=== PATIENT | female | born 1985 | race Caucasian/White ===

== ENCOUNTER 2023-10-15 01:38 | Day surgery (SDC) | payer BC, SELFPAY ==
[2023-10-06 14:25] VITALS: BMI 35.6
--- NOTE | 2023-10-06 14:53 | PC.NURSE ---
Report to the Outpatient Waiting Room, entrance under the green pavilion located off [facility], at time _10:00AM___ on date _FRIDAY _10/15/23 . Planned Procedure Time: _12:00AM . Time changes happen often and if your time is changed the preop area will call you the afternoon before. - You and your visitor will be asked to self-screen and do not enter if you have any COVID symptoms. - A mask is optional within the hospital at this time. Patients may have clear liquids (water, carbonated beverages, clear teas, apple juice) until 3 hours prior to surgery(09:00 AM) with a maximum of 20 ounces. - No food from midnight until time of surgery . Take the following medications with a SIP of water the morning of surgery: ___SERTRALINE DO NOT STOP ANY OF YOUR OTHER PRESCRIPTION MEDICATIONS PRIOR TO SURGERY ?EXCEPT THE FOLLOWING Medications to discontinue per physician NONE Date to take last dose NONE Please no make-up, nail palauan, hairspray, perfume, deodorant, or body powder the day of surgery. No jewelry (including any body piercings) or valuables the day of surgery, leave them at home. Please take a shower or bath the night before, or the morning of, surgery with an antibacterial soap. Wear comfortable, loose fitting clothing. - Jewelry must be removed prior to entering the operating room. Rings and piercings that are not removed may be cut off. - The hospital will not accept responsibility for valuables. - Please leave all valuables, including medications, at home the day of surgery. If you are going home after surgery, a licensed taxi cab driver must drive you home. - NO public transportation without another adult if you receive anesthesia. - We recommend that an adult stay with you for 24 hours following discharge. - We also recommend that you do not drive, make important decision, drink alcoholic beverages, or take any drugs that were not prescribed by your health care provider for at least 24 hours after your discharge time. Follow any additional instructions given to you from your surgeon. If you or anyone in your household have experienced Covid symptoms in the past week, please notify your surgeon or the nurse liaison at the phone number below for possible testing. Telephone instructions given to __RAINA and asked if any additional questions and then verbalized understanding. Patient advised to call surgeon office or pre surgery nurse liaison [phone] if any additional questions.
[2023-10-15] VITALS (8 sets, daily range): BP systolic 115–128; BP diastolic 62–87; PULSE 72–115; RESP 12–16; TEMP 34.8–36.2; O2SAT 96–100
[2023-10-15] MEDS: ACETAMINOPHEN 500 MG TABLET 1000 MG PO (10:46)
[2023-10-15] MEDS: KETOROLAC 15 MG/ML VIAL (*BKC) IV PUSH (10:47)
--- NOTE | 2023-10-15 11:16 | WPDANESEPPF ---
Anes - Initial Pre Proc Eval Procedure: Operation Date: 10/15/23 12:00 Proposed Procedures p Laparoscopic Bilateral Tubal Ligation with Rings - Da Dunbar MD s Hysteroscopy Dilation and Curettage with Preeti Endometrial Ablation - Da Dunbar MD Date/Time: 10/15/23 11:16 Surgeon: Da Dunbar MD Pre Op Diagnosis: Desire Steriliz, Irg Bleeding Patient Data Age: 38 Gender: F Height: 1.65 m Weight: 94.7 kg Last Vital Signs Temp 34.8 C L 10/15/23 10:48 Pulse 89 10/15/23 10:48 Resp 16 10/15/23 10:48 BP 125/86 10/15/23 10:48 Pulse Ox 98 10/15/23 10:48 O2 Del Method Room Air 10/15/23 10:48 Allergies Allergy/AdvReac Type Severity Reaction Status Date / Time No Known Allergies Allergy Verified 10/15/23 10:45 Home Medications Medication Instructions Recorded Confirmed Type sertraline 100 mg tablet 100 mg PO DAILY 10/06/23 10/15/23 History trazodone 50 mg tablet 50 mg PO DAILY 10/06/23 10/15/23 History Patient hx anesthesia problems: none Family hx anesthesia problems: none Results Review: All pre-operative results and documents have been reviewed as part of the pre-operative evaluation. [facility] Social History Social History Smoking packs per day: 0.5 Smoking cigarettes per day: 10.0 Years smoked: 20 Smoking pack-years: 10.00 Smoking status: Light tobacco smoker Tobacco type: e-cigarettes/vaping Additional smoking assessment comments: SWITCHED TO VAPING 2020 Alcohol intake: never Substance use: never Substance use type: does not use Living arrangements: with family Spiritual care concerns: No Anes - Eval Final PreProcedure Day of Procedure 10/15/23 11:16 Patient weight: obese Heart: regular rate and rhythm Lungs: decreased breath sounds Airway: Mallampati scale class II Neurological: alert and oriented Last oral intake: >/= 8 hours ASA classification: II Emergent: no Anesthetic plan: proceed Anesthesia type and monitoring: general ETT and standard monitoring Results Review: All pre-operative results and documents have been reviewed as part of the pre-operative evaluation. Informed Consent: The patient's anesthetic plan and its attendant risks and benefits were discussed with the patient/family/POA. Questions were solicited and answers provided to the satisfaction of the patient/family/POA.
[2023-10-15] MEDS: LACTATED RINGERS 1,000 ML 30 ML IV CONT (11:30)
--- NOTE | 2023-10-15 11:40 | PM.IMHP ---
H&P: HPI History of Present Illness Date/Time: 10/15/23 11:40 Chief Complaint: Bleeding and pain Narrative: 46 y/o with painful menses and for a week afterward. Ultrasound shows heterogeneous myometrial texture, but is otherwise unremarkable. She does not desire future childbearing. Review of Systems Review of Systems: All systems reviewed & are unremarkable except as noted in HPI and below PMFSH Past Medical History Medical History History of depression History of insomnia Surgical History Surgical History History of D&C Social History Social History Smoking packs per day: 0.5 Smoking cigarettes per day: 10.0 Years smoked: 20 Smoking pack-years: 10.00 Smoking status: Light tobacco smoker Tobacco type: e-cigarettes/vaping Additional smoking assessment comments: SWITCHED TO VAPING 2020 Alcohol intake: never Substance use: never Substance use type: does not use Living arrangements: with family Spiritual care concerns: No Meds Home Medications and Allergies Home Medications Medication Instructions Recorded Confirmed Type sertraline 100 mg tablet 100 mg PO DAILY 10/06/23 10/15/23 History trazodone 50 mg tablet 50 mg PO DAILY 10/06/23 10/15/23 History Allergies Allergy/AdvReac Type Severity Reaction Status Date / Time No Known Allergies Allergy Verified 10/15/23 10:45 Vital Signs Vital Signs - 24 hr 10/15/23 10:48 Temperature 34.8 C L Pulse Rate 89 Respiratory Rate 16 Blood Pressure 125/86 Pulse Oximetry 98 Oxygen Delivery Room Air Exam Const: Orientation/consciousness: patient oriented x3 Other: Well-developed, well-nourished female in no acute distress. Neck: Thyroid: thyroid normal Lymphatic: no lymphadenopathy noted (in neck, axilla or inguinal nodes) Resp: Effort & Inspection: normal respiratory effort Auscultation: clear to auscultation bilaterally Cardio: Rate: regular rate Rhythm: regular rhythm Heart sounds: S1 normal heart sound present and S2 normal heart sound present GI: Other: ABD: Soft, nontender, nondistended. No guarding or rebound tenderness. No hepatosplenomegaly. : General: Yes no CVA tenderness Other: External genitalia: normal female hair distribution, without lesion. Urethral meatus: no lesion, non prolapsed. Bladder: no mass, nontender Vagina: well-estrogenized, without lesion or discharge. No cystocele or rectocele. Cervix: no lesion or discharge. Uterus: small, anteverted, freely mobile, nontender Adnexa: no mass or tenderness. Anus/perineum: no lesions, nontender Back/Spine/Pelvis: Back: no CVA tenderness Skin: General skin exam: normal color and no rashes or lesions noted Neuro: General: patient oriented x3 Extrem: Other: Extremities: nontender with no edema Psych: Mental Status: mental status grossly normal Affect: normal affect Assessment and Plan Assessment and plan (1) Dysmenorrhea: Code(s): N94.6 - Dysmenorrhea, unspecified Status: Acute Assessment and Plan: A: Dysmenorrhea with pelvic pain, desired sterility. P: We have reviewed medical as well as surgical approaches. She prefers the latter. Specifically, she is interested in laparoscopic bilateral tubal ligation, hysteroscopy, dilation and sharp curettage and endometrial ablation. She understands risks of surgery to include risks of anesthesia, risks of pain, infection, bleeding, blood products, thromboembolic phenomena and damage to adjacent structures such as bowel, bladder, ureters, blood vessels and nerves. She understands that tubal ligation will render her permanently sterile. She understands all these risks and elects to proceed with surgery. (2) Pelvic pain: Code(s): R10.2 - Pelvic and perineal pain Stat
--- NOTE | 2023-10-15 12:00 | WPDHPUPDATE1 ---
History and Physical Update Update Date/Time: 10/15/23 12:00 History and Physical has been reviewed, including an updated exam of the patient. There are NO changes in the patient's condition. Risks, benefits, and alternatives have been discussed and questions answered. Patient agrees to proceed with procedure.
[2023-10-15] MEDS: LIDOCAINE HCL 1% LOCAL INJ 20 ML VIAL 10 ML INFILTRATE (12:38)
--- NOTE | 2023-10-15 13:05 | W.PM.PROC2 ---
Procedure Note - Detailed Date of Procedure 10/15/23 Pre-op Diagnosis Dysmenorrhea Pelvic pain Desired sterility Post-op Diagnosis Same Procedure Performed Laparoscopic bilateral tubal ligation with Falope rings Hysteroscopy Dilation and sharp curettage Endometrial ablation Surgeon Da Dunbar MD Anesthesia General and Local (1% lidoccaine) Findings Unremarkable pelvis. Normal-appearing uterus, bilateral tubes and ovaries, anterior and posterior cul-de-sac, bilateral round and uterosacral ligaments. On hysteroscopy, the endometrial cavity was unremarkable. Both tubal ostia were seen. The uterus sounded to a depth of 7.5 cm with a cervical length of 3 cm, giving a subtracted uterine cavity depth of 4.5 cm. Description of Procedure The patient was taken to the operating room where general endotracheal anesthesia was administered. She was prepared and draped in the usual sterile fashion in dorsal lithotomy position. The bladder was drained with a red rubber catheter. A sterile speculum was placed into the vagina. The anterior lip of the cervix was grasped with a single-tooth tenaculum. The acorn uterine manipulator was placed. The speculum was withdrawn. Gloves were changed and attention was turned the abdomen. An infraumbilical skin incision was made with a scalpel. The abdomen was tented and a 5mm bladeless trocar was advanced under direct laparoscopic visualization. Pneumoperitoneum was administered using carbon dioxide gas. A survey of the pelvis and abdomen revealed the findings noted above. A second skin incision was made in the midline above the symphysis pubis and an 8mm bladeless trocar was advanced under direct laparoscopic visualization. The fallopian tube on the right side was followed out to the fimbriated end for identification. It was then grasped in the midportion with the Falope ring applicator. The Falope ring was tented applied. A good loop of tube was noted to be distal to the ring. Hemostasis was excellent. The device was reloaded and the contralateral tube was similarly identified and ligated. An excellent application was noted here as well. A total of 6mL of 1% lidocaine was infiltrated into the serosa of the proximal tubes for postoperative anesthesia. The ports were withdrawn. The gas was allowed to escape. The skin incisions were reapproximated using interrupted subcuticular sutures of 4 0 Vicryl. Dermaflex was applied externally. Attention was redirected to the vagina, where the acorn manipulator was withdrawn and the speculum was reintroduced. Fourteen mL of 1% lidocaine was administered in a paracervical block. The cervix was then gently dilated using Hegar dilators until a 7 mm dilator could be passed. Hysteroscopy was performed using sterile saline as a distention medium. Findings are as noted above. Sharp curettage was then performed, and endometrial curettings were collected on a Telfa pad and passed off to be sent to pathology. Finally, the the Preeti device was advanced and endometrial ablation commenced without difficulty. The device was withdrawn and a second look was taken using the hysteroscope. Excellent coverage of the endometrial cavity was noted. The tenaculum was removed. Hemostasis was excellent. Sponge, lap, needle and instrument counts were correct. The patient was awakened and taken to the recovery room in stable condition. I was present and scrubbed through the entire procedure. Implants Falope rings x 2 Estimated Blood Loss 5 Drains No Packing No Pathology Yes (Endometrial curettings) Complications None Condition Stable Disposition PACU
[2023-10-15] MEDS: ONDANSETRON INJ 4 MG/2 ML VIAL IV PUSH (13:08)
[2023-10-15] MEDS: fentaNYL CITRATE INJ (*CRX) 100 MCG/2 ML VIAL 25 MCG IV PUSH ×4 (13:09→13:24)
[2023-10-15] MEDS: oxyCODONE HCL (*CRX) 5 MG TAB IR PO (14:35)
== END 2023-10-15 15:12 | disposition home or self-care (01) ==
PROVIDERS: PCP Nurse Practitioner; Visit Provider Obstetrics & Gynecology
PROC: (CPT 58671; principal; 2023-10-15 12:00)
PROC: 0U5B8ZZ Destruction of Endometrium, Via Natural or Artificial Opening Endoscopic (ICD-10-PCS; CPT 58563; 2023-10-15 12:00)
DX: N94.6 Dysmenorrhea, unspecified (principal); R10.2 Pelvic and perineal pain; Z30.2 Encounter for sterilization; F17.290 Nicotine dependence, other tobacco product, uncomplicated; F32.A Depression, unspecified; E66.9 Obesity, unspecified; Z68.34 Body mass index [BMI] 34.0-34.9, adult
CPT/HCPCS: 58563; 58671; 88305; A4264; A9270; J1100; J1596; J1885; J2250; J2270; J2405; J2704; J2710; J3010; J7120